=== PATIENT | female | born 1935 | race Caucasian/White ===

== ENCOUNTER 2019-07-02 11:32 | Emergency (ER) | payer MEDICARE, OTHER ==
[~2019-07-02] VITALS: Ht 154.9 cm; Wt 61.2 kg
[~2019-07-02 11:32] MED LIST: ASPI81CH43 PO; ATEN25TA PO; ATOR20TA50 PO; FAM20T PO
[2019-07-02] MEDS ORDERED: TETANUS-DIPTH-ACEL PERTUSSIS 0.5ML SYR Tdap IM ONE (12:15)
[2019-07-02] MEDS ORDERED: ACETAMINOPHEN 325 MG TAB PO ONE (12:15)
[2019-07-02 14:26] VITALS: BP 169/75
[2019-07-02] MEDS ORDERED: KETOROLAC TROMETH 60MG/2ML VIAL IM ONE (14:30)
[2019-07-02] MEDS ORDERED: cefTRIAXone SOD 1,000 MG VL IM ONE (14:30)
== END 2019-07-02 15:26 | disposition home or self-care (01) ==
LOC: ER 11:32 → EDBD 11:32 → ER 15:26
DX: S51.012A Laceration without foreign body of left elbow, initial encounter (principal); S61.511A Laceration without foreign body of right wrist, initial encounter; M25.552 Pain in left hip; M25.512 Pain in left shoulder; I10 Essential (primary) hypertension; E78.5 Hyperlipidemia, unspecified; Z88.5 Allergy status to narcotic agent; W19.XXXA Unspecified fall, initial encounter; Y93.89 Activity, other specified; Y92.009 Unspecified place in unspecified non-institutional (private) residence as the place of occurrence of the external cause; Y99.8 Other external cause status; I67.2 Cerebral atherosclerosis
CPT/HCPCS: 70450; 71045; 72192; 73030; 73080; 73110; 90471; 90715; 93005; 96372; 99285; J0696; J1885

== ENCOUNTER 2024-07-12 22:08 | Inpatient (IN) | payer MEDICARE, OTHER ==
[~2024-07-12] VITALS: Ht 152.4 cm; Wt 70.6 kg
[~2024-07-12 22:08] MED LIST changes: -FAM20T PO; +FAMO20TA10 PO
--- NOTE | 2024-07-12 22:48 | ED.PDOC ---
History of Present Illness HPI Comments 89 y/o F is BIBA for c/o flu-like symptoms, today. Per EMS report, patient endorses on multiple complaints, that began with congestion, fatigue, and diarrhea, yesterday. Today, patient endorses on calling EMS for nausea, vomiting , diarrhea, and generalized bodyaches. Reports no recent abnormal events and ea ting at a restaurant, earlier, with her usual food order. Denies any further associated symptoms. Chief Complaint: Nausea/Vomiting Time Seen by MD: 22:30 Reviewed Notes: Nurses Notes, Closing Manager Notes, Medications, Allergies Allergies: Coded Allergies: Codeine (Verified Allergy, Unknown, 07/12/24) Information Source: Patient, Emergency Med Personnel Mode of Arrival: EMS Severity: Moderate Timing: Hours Duration: Since onset Prehospital treatment: None Past Medical History PAST MEDICAL HISTORY: Denies Surgical History: Denies all surgeries SWIMMING POOL ATTENDANT History: No Pertinent SWIMMING POOL ATTENDANT History All Other Systems: Reviewed and Negative (Comprehensive systems review obtained and negative except for what is stated in the HPI.) Physical Exam General Appearance: No Apparent Distress, Normal HEENT: Normal ENT Inspection, Pharynx Normal, TMs Normal Neck: Full Range of Motion, Non-Tender, Normal, Normal Inspection Respiratory: Chest Non-Tender, Lungs Clear, No Accessory Muscle Use, No Respira tory Distress, Normal Breath Sounds Cardiovascular: No Edema, No JVD, No Murmur, No Gallop, Normal Peripheral Pulses, Regular Rate/Rhythm Breast Exam: Deferred Gastrointestinal: Diffuse (tenderness), No Organomegaly, No Pulsatile Mass, Normal Bowel Sounds, Soft, Tenderness Genitalia: Deferred Pelvic: Deferred Rectal: Deferred Extremities: No calf tenderness, Normal capillary refill, Normal inspection, Normal range of motion, Non-tender, No pedal edema Musculoskeletal : Apperance: Normal Neurologic: Alert, wire coiler II-XII nml as Tested, No Motor Deficits, Normal Affect, Normal Mood, No Sensory Deficits Cerebellar Function: Normal Reflexes: Normal Skin: Dry, Normal Color, Warm Lymphatic: No Adenopathy Was a procedure done? Was a procedure done?: No Differential Dx Considerations may include: viral syndrome, URI, UTI, gastritis, gastroenteritis, spoiled food, among others X-Ray, Labs, Meds, VS Vital Signs Date Time Temp Pulse Resp B/P (MAP) Pulse Ox O2 Delivery O2 Flow Rate FiO2 07/12/24 22:11 98.4 68 18 185/77 (113) 99 98.4 Lab Test 07/12/24 22:39 Range/Units White Blood Count 7.2 4.4-10.8 10^3/uL Red Blood Count 4.62 4.0-5.20 10^6/uL Hemoglobin 13.4 12.2-16.2 g/dL Hematocrit 41.0 36.0-46.0 % Mean Corpuscular Volume 88.8 80.0-100.0 fL Mean Corpuscular Hemoglobin 29.0 28.0-32.0 pg Mean Corpuscular Hemoglobin Concent 32.7 32.0-36.0 g/dL Red Cell Distribution Width 14.2 11.8-14.3 % Platelet Count 176 140-450 10^3/uL Mean Platelet Volume 8.8 6.9-10.8 fL Neutrophils (%) (Auto) 73.2 37.0-80.0 % Lymphocytes (%) (Auto) 18.6 10.0-50.0 % Monocytes (%) (Auto) 5.3 0.0-12.0 % Eosinophils (%) (Auto) 2.1 0.0-7.0 % Basophils (%) (Auto) 0.8 0.0-2.0 % Neutrophils # (Auto) 5.3 1.6-8.6 10 ^3/uL Lymphocytes # (Auto) 1.3 0.4-5.4 10 ^3/uL Monocytes # (Auto) 0.4 0-1.3 10 ^3/uL Eosinophils # (Auto) 0.2 0-0.8 10 ^3/uL Basophils # (Auto) 0.1 0-0.2 10 ^3/uL Nucleated Red Blood Cells 0.0 % Sodium Level 144 136-145 mmol/L Potassium Level 4.3 3.5-5.1 mmol/L Chloride Level 105 98-107 mmol/L Carbon Dioxide Level 31 20-31 mmol/L Anion Gap 8 5-15 Blood Urea Nitrogen 19 9-23 mg/dL Creatinine 0.87 0.550-1.02 mg/dL Glomerular Filtration Rate Calc 64 >90 mL/min BUN/Creatinine Ratio 21.8 H 10.0-20.0 Serum Glucose 228 H 74-106 mg/dL Calcium Level 9.6 8.7-10.4 mg/dL Total Bilirubin 0.4 0.2-1.0 mg/dL Aspartate Amino Transferase (AST) 102 H 13-40 U/L Alanine Aminotransferase (ALT) 44 H 7-40 U/L Alkaline Phosphatase 107 46-116 U/L Total Protein 6.7 5.7-8.2 g/dL Albumin 4.1 3.2-4.8 g/dL Lipase 50 12-53 U/L X-Ray, Labs, Meds, VS Comment Imaging: X-rays and CT scans were reviewed and interpreted by this provider, CT abdomen pelvis: IMPRESSION: 1. No acute abdominal or pelvic findings. 2. Nonobstructive left nephrolithiasis. 3. Diverticulosis coli. Laboratory: Labs reviewed and interpreted by this provider. No significant abnormalities noted. Patient has prior medical visits reviewed. Med reconciliation performed Vital signs reviewed Patient will be admitted for acute abdominal pain, acute vomiting, diverticulosis. Patient was given IV fluids, pain will be managed, recommend GI consult in the morning. Time of 1ST Reevaluation: 23:00 Reevaluation 1ST: Unchanged Patient Education/Counseling: Diagnosis, Treatment Family Education/Counseling: No Family Present Departure 1 Departure Time of Disposition: 02:17 Impression: Primary Impression: Diverticulosis Additional Impressions: Acute abdominal pain Acute vomiting Disposition: 09 ADMITTED INPATIENT Condition: Fair Critical Care Note Critical Care Time?: No Stability Stability form required: No Heart Score Heart Score: Heart Score Response (Comments) Value History N/A 0 EKG N/A 0 Age N/A 0 Risk Factors N/A 0 Troponin N/A 0 Total 0 I personally scribed for BC THAPA ([email or web address]) on 07/12/24 at 22:48. Electronically submitted by Yordan Huber ([email or web address]). BC THAPA July 12, 2024 22:48
[2024-07-12 23:22] LABS: Basophils # (auto) 0.1 10 ^3/uL (0-0.2); Basophils % (auto) 0.8 % (0.0-2.0); Eosinophils # (auto) 0.2 10 ^3/uL (0-0.8); Eosinophils % (auto) 2.1 % (0.0-7.0); Hemoglobin 13.4 g/dL (12.2-16.2); Lymphocytes # (auto) 1.3 10 ^3/uL (0.4-5.4); Lymphocytes % (auto) 18.6 % (10.0-50.0); Mean Corpuscular Hgb Conc. 32.7 g/dL (32.0-36.0); Mean Corpuscular Volume 88.8 fL (80.0-100.0); Monocytes # (auto) 0.4 10 ^3/uL (0-1.3); Monocytes % (auto) 5.3 % (0.0-12.0); Neutrophils # (auto) 5.3 10 ^3/uL (1.6-8.6); Neutrophils % (auto) 73.2 % (37.0-80.0); Platelet Count (auto) 176 10^3/uL (140-450); Red Blood Cells 4.62 10^6/uL (4.0-5.20); Red Cell Distribution Width 14.2 % (11.8-14.3); White Blood Cell 7.2 10^3/uL (4.4-10.8)
[2024-07-12 23:32] LABS: Albumin 4.1 g/dL (3.2-4.8); Alkaline Phosphatase 107 U/L (46-116); Anion Gap 8 (5-15); BUN/Creatinine Ratio 21.8 (10.0-20.0); Bilirubin, Total 0.4 mg/dL (0.2-1.0); Blood Urea Nitrogen 19 mg/dL (9-23); Calcium 9.6 mg/dL (8.7-10.4); Carbon Dioxide 31 mmol/L (20-31); Chloride 105 mmol/L (98-107); Lipase 50 U/L (12-53); Potassium 4.3 mmol/L (3.5-5.1); Sodium 144 mmol/L (136-145); Total Protein 6.7 g/dL (5.7-8.2)
[2024-07-12 23:33] LABS: Alanine Aminotransferase 44 U/L (7-40); Aspartate Aminotransferase 102 U/L (13-40); Glucose 228 mg/dL (74-106)
--- NOTE | 2024-07-13 01:59 | DVH ---
Exam: CT CT AB PEL WO CON-NO ORAL OR IV History: abd pain Comparison Study: None Technique: Multidetector spiral CT of the abdomen was performed from lung bases to pubic symphysis. I maging was performed without IV contrast. Axial, coronal and sagittal multiplanar reformats were obta ined from the axial data set by the technologist. Radiation Dose : 1. Abdomen/Pelvis: CTDIvol 10.63 mGy, DLP 523.67 mGy*cm. Findings: Evaluation of solid organs is limited due to lack of intravenous contrast use. Lung Bases: No acute or significant lung base finding. Normal heart size. No pleural or pericardial effusion. Liver: The liver is normal in size. No focal lesions. Gallbladder and Biliary Tree: Status post cholecystectomy. Spleen: Unremarkable Pancreas: Moderate diffuse fatty parenchymal replacement. The pancreas is otherwise grossly normal in appearance. Adrenal Glands: Unremarkable Kidneys: Kidneys are grossly normal without hydronephrosis. Nonobstructing left inferior pole 0.4 cm nephrolith. Bladder: Grossly unremarkable for degree of distention. Bowel: The stomach is grossly normal in appearance. Small bowel and colon are normal in caliber and d istribution. Sigmoid colonic diverticula without CT evidence of acute diverticulitis. The appendix is not visualized; however, no secondary findings of acute appendicitis identified. Ascites: Absent Lymphadenopathy: No mesenteric, retroperitoneal or periportal lymphadenopathy. Abdominal Wall and Mesentery: Unremarkable. Vasculature: The visualized abdominal aorta is normal in size and caliber. Atherosclerotic vascular c alcifications. Evaluation of abdominal and pelvic vessels is limited due to lack of intravenous cont rast. Pelvic Organs: Unremarkable status post hysterectomy. Musculoskeletal: No aggressive focal bony lesions, acute fractures or dislocation. IMPRESSION: 1. No acute abdominal or pelvic findings. 2. Nonobstructive left nephrolithiasis. 3. Diverticulosis coli. Radiation optimization: All CT scans at this facility use at least one of these dose optimization cesar hniques: automated exposure control mA and/or kV adjustment per patient size (includes targeted exam s where dose is matched to clinical indication) or iterative reconstruction.
--- NOTE | 2024-07-13 03:12 | DVHHP2 ---
History of Present Illness History of Present Illness Patient is 89 years old female with a past medical history of hypertension came to the hospital due to intractable nausea and vomiting. As per patient she has been having nausea and vomiting for last 2 days, couple of times a day, watery, no blood. Patient also endorsed diarrhea for last 3 days, 2 to 3 times a day, no blood. Also endorsed left lower back pain for last couple of days, crampy, intermittent in nature. On further inquiry patient reported she has been tired and fatigued. Patient denied fever, dysuria, acute joint pain or swelling, dysarthria or change in vision. chest pain or shortness of breath. Lab workup revealed 4 AST 102, ALT 45. CT abdomen reveale-. Nonobstructive left nephrolithiasis.Diverticulosis coli. Past Medical History HTN Past Surgical History Appendectomy, cholecystectomy, hysterectomy Past Social History Lives alone, occasional alcoholic, denies smoking or drug abuse Home medication -atenolol Review of Systems Review of Systems Allergy- codeine Patient was seen today at the bedside. Cardiovascular- deny acute chest pain or shortness of breath or cough or palpitation Respiratory denies cough or short of breath or wheezing Musculoskeletal-denies acute joint swelling or tenderness or redness Neurological- denies acute dysarthria, dysphagia, change in vision Psychiatry- denies depression or SI or HI Skin- denies acute rash or purpura Allergies: Coded Allergies: Codeine (Verified Allergy, Unknown, RASH, 02/16/19) Medications Current Medications Medications Dose Ordered Sig/Ky Route Start Time Stop Time Status Last Admin Dose Admin Acetaminophen 650 mg Q6HP PRN PO 07/13/24 03:15 UNV Nitroglycerin 0.4 mg Q5MINP PRN SL 07/13/24 03:15 UNV Morphine Sulfate 2 mg Q30M PRN IV 07/13/24 03:15 UNV Exam Vital Signs Vital Signs Date Time Temp Pulse Resp B/P (MAP) Pulse Ox O2 Delivery O2 Flow Rate FiO2 07/12/24 22:11 98.4 68 18 185/77 (113) 99 98.4 Exam General examination- awake, alert, oriented HEENT- PEERLA, no acute nasal discharge Cardiovascular- S1-S2 audible, rate and rhythm regular, no murmur Respiratory- CTAB, no wheeze or rhonchi Gastrointestinal-abdominal tenderness++, bowel sound+. Nondistended Musculoskeletal-no acute joint swelling or tenderness or redness Lower extremity- no leg edema Renal system-tenderness in the left lower back+ Neurological- cranial nerves intact, no acute dysarthria or dysphagia Psychiatry- denies depression or SI or HI Skin- no acute rash or purpura Labs/Xrays Labs Test 07/12/24 22:39 Range/Units White Blood Count 7.2 4.4-10.8 10^3/uL Red Blood Count 4.62 4.0-5.20 10^6/uL Hemoglobin 13.4 12.2-16.2 g/dL Hematocrit 41.0 36.0-46.0 % Mean Corpuscular Volume 88.8 80.0-100.0 fL Mean Corpuscular Hemoglobin 29.0 28.0-32.0 pg Mean Corpuscular Hemoglobin Concent 32.7 32.0-36.0 g/dL Red Cell Distribution Width 14.2 11.8-14.3 % Platelet Count 176 140-450 10^3/uL Mean Platelet Volume 8.8 6.9-10.8 fL Neutrophils (%) (Auto) 73.2 37.0-80.0 % Lymphocytes (%) (Auto) 18.6 10.0-50.0 % Monocytes (%) (Auto) 5.3 0.0-12.0 % Eosinophils (%) (Auto) 2.1 0.0-7.0 % Basophils (%) (Auto) 0.8 0.0-2.0 % Neutrophils # (Auto) 5.3 1.6-8.6 10 ^3/uL Lymphocytes # (Auto) 1.3 0.4-5.4 10 ^3/uL Monocytes # (Auto) 0.4 0-1.3 10 ^3/uL Eosinophils # (Auto) 0.2 0-0.8 10 ^3/uL Basophils # (Auto) 0.1 0-0.2 10 ^3/uL Nucleated Red Blood Cells 0.0 % Sodium Level 144 136-145 mmol/L Potassium Level 4.3 3.5-5.1 mmol/L Chloride Level 105 98-107 mmol/L Carbon Dioxide Level 31 20-31 mmol/L Anion Gap 8 5-15 Blood Urea Nitrogen 19 9-23 mg/dL Creatinine 0.87 0.550-1.02 mg/dL Glomerular Filtration Rate Calc 64 >90 mL/min BUN/Creatinine Ratio 21.8 H 10.0-20.0 Serum Glucose 228 H 74-106 mg/dL Calcium Level 9.6 8.7-10.4 mg/dL Total Bilirubin 0.4 0.2-1.0 mg/dL Aspartate Amino Transferase (AST) 102 H 13-40 U/L Alanine Aminotransferase (ALT) 44 H 7-40 U/L Alkaline Phosphatase 107 46-116 U/L Total Protein 6.7 5.7-8.2 g/dL Albumin 4.1 3.2-4.8 g/dL Lipase 50 12-53 U/L Assessment/Plan Assessment/Plan Assessment and plan Intractable nausea and vomiting and diarrhea likely due to acute gastroenteritis Acute gastroenteritis likely infectious Hypertensive urgency Left renal not obstructing Renal Diverticulosis coli Transaminitis Plan Continue IV fluid as prescribed Ordered ceftriaxone and metronidazole Lovenox DVT prophylaxis Pantoprazole as prescribed Pain medication as prescribed Hydralazine PRN Pending C diff toxin, stool culture Pending echo 2D report Goals of care, Code status ; discussed with >15 minutes PUD prophylaxis: Pantoprazole DVT prophylaxis: Lovenox Plan discussed with Dr. Brenner , nursing staff, Total time spent on patient evaluation, chart review, assessment and plan, discussion discussion >35 minutes Plan discussed with: Patient (RN), Other My Orders Orders - MEHUL AKERS RESIDENT Procedure Category Date Status Time Admit ADMIT 07/13/24 Transmitted 03:06 Code Status CODE 07/13/24 Transmitted 03:06 Complete Blood Count LAB 07/14/24 Verified 04:00 Comprehensive LAB 07/14/24 Verified Metabolic Panel 04:00 Echo 2d Mode Cardiac US 07/13/24 Logged DOP 03:06 Acetaminophen Tablet PHA 07/13/24 Logged (Tylenol Tablet) 03:15 Clear Liq Diet DIET 07/13/24 Transmitted Breakfast Nitroglycerin PHA 07/13/24 Logged Sublingual (Ntrostat 03:15 Morphine Sulfate PHA 07/13/24 Logged Injection 03:15 Oxygen By Nasal RT 07/13/24 Transmitted Cannula 03:06 Stat Ekg For Chest MANOJ 07/13/24 In Process Pain 03:06 Notify Of Changes MANOJ 07/13/24 In Process From Base 03:06 Privacy Director For MANOJ 07/13/24 In Process 24 Hours 03:06 Emergency Dysrhythmia MANOJ 07/13/24 In Process Protocol 03:06 Rhythm Strips Once [facility] 07/13/24 In Process Every Shift 03:06 Date of Service: July 13, 2024 Billing Provider: ANABEL BRENNER MD Common Visit Codes: 80554-[id number] INP/OBS CARE (HIGH) Secondary Visit Codes: 04053-[id number] CARE PLAN 30 MINUTES MEHUL AKERS RESIDENT July 13, 2024 03:12
[2024-07-13] MEDS ORDERED: ACETAMINOPHEN 325 MG TAB PO PRN (03:15)
[2024-07-13] MEDS ORDERED: NITROGLYCERIN 0.4 MG SL TAB SL PRN (03:15)
[2024-07-13] MEDS ORDERED: SODIUM CHLORIDE 0.9% 1,000 ML IV ONE (03:30)
[2024-07-13 04:00] VITALS: PULSE 83; RESP 17; O2SAT 96
[2024-07-13] MEDS: SODIUM CHLORIDE 0.9% 1,000 ML IV ONE (04:54)
[2024-07-13] MEDS: ONDANSETRON HCL 4 MG/2 ML VIAL IV ONE (04:57)
[2024-07-13] MEDS: hydrALAZINE HCL 20 MG/ML VL IV ONE (04:58)
[2024-07-13] MEDS: cefTRIAXone 1GM/50ML D5W 50 ML IV ONE (05:15)
[2024-07-13] MEDS: PANTOPRAZOLE 40 MG/10 ML VIAL INJ IV ONE (05:33)
[2024-07-13] MEDS: ENOXAPARIN SOD 40 MG/0.4 ML SYRINGE SC ONE (05:34)
[2024-07-13] MEDS: metroNIDAZOLE 500MG/100ML 100 ML IV ONE (05:43)
[2024-07-13] MEDS: SODIUM CHLORIDE 0.9% 1,000 ML IV SCH (07:07)
[2024-07-13 07:50] VITALS: PULSE 69; RESP 16; O2SAT 96
[2024-07-13 12:54] LABS: Urine Bacteria FEW /hpf (None Seen); Urine Blood Negative /uL (Negative); Urine Clarity Clear (Clear); Urine Color Yellow (Yellow); Urine Protein, UAD Negative (Negative); Urine Specific Gravity 1.021 (1.001-1.035); Urine Squamous Epithelial Cell FEW /hpf (<5); Urine Urobilinogen Normal (Negative); Urine WBC 9 /HPF (0-5)
[2024-07-13] MEDS: metroNIDAZOLE 500MG/100ML 100 ML IV SCH (13:36)
--- NOTE | 2024-07-13 18:45 | DVHPNRES ---
Progress Note Date Seen: July 13, 2024 Resident Creating Document: YARITZA ZHENG RESIDENT Has the PT tested + for MRSA If YES, has PT been informed?: No Medical Necessity Reason Pt with a Central, PICC or Fol: No Medical Necessity Reason History of Present Illness Patient is 89 years old female with a past medical history of hypertension came to the hospital due to intractable nausea and vomiting. As per patient she has been having nausea and vomiting for last 2 days, couple of times a day, watery, no blood. Patient also endorsed diarrhea for last 3 days, 2 to 3 times a day, no blood. Also endorsed left lower back pain for last couple of days, crampy, intermittent in nature. On further inquiry patient reported she has been tired and fatigued. Patient denied fever, dysuria, acute joint pain or swelling, dysarthria or change in vision. chest pain or shortness of breath. Lab workup revealed 4 AST 102, ALT 45. CT abdomen reveale-. Nonobstructive left nephrolithiasis.Diverticulosis coli. Past Medical History: HTN Past Surgical History: Appendectomy, cholecystectomy, hysterectomy Past Social History: Lives alone, occasional alcoholic, denies smoking or drug abuse Home medication -atenolol PN: 07/13/2024 Patient is an 89 years old female with a past medical history of hypertension came to the hospital due to intractable nausea and vomiting and back pain. According to the patient, for the past 2-3 days, she has bee having. At least 2-3 times day. it was nonbilious and nonbloody. Then she she starting feeling dizzy. that prompted her to come to the ED. Also, patient mention having new onset lower back pain. She denies any numbness or tingling sensation in her lower extremities. She had no fever no dysuria quit acute joint pains. In the ED, her initial blood pressure was 187/77, heart rate 68, RR: 12-19. Work revealed mildly elevated liver enzymes AST about 2/3 grand on ALT. Patient said she does not drink or smoke. CT abdomen revealed1. No acute abdominal or pelvic findings Nonobstructive left nephrolithiasis and Diverticulosis coli. Subjective Review of Systems Constitutional: Denies fever no chills no feeling of malaise; no diarrhea about or nausea vomiting today HEENT: Denies headache, ear pain, ear discharges, conjunctivitis, nasal discharge throat pain Cardiovascular: Denies chest pain, palpitation, orthopnea, PND, or pedal edema Respiratory: Denies shortness of breath, cough cough, sputum production, hemoptysis, GI: Denies abdominal pain, nausea, vomiting, diarrhea, hematemesis, hematochezia, : Denies frequency, urgency, hematuria, Endocrine: Denies unintentional weight gain or weight loss, feeling of hot flashes, Dung: Denies easy bruising, bleeding disorders, epistaxis Musculoskeletal: Denies joint pains, muscle aches Psych: No evidence of depression, saturnino, suicidal ideation Objective vital signs Vital Sign Date Time Temp Pulse Resp B/P (MAP) Pulse Ox O2 Delivery O2 Flow Rate FiO2 07/13/24 16:00 98.1 69 16 157/65 (95) 94 98.1 07/13/24 07:50 Room Air* 0 21 Total Intake and Output 07/12/24 07/12/24 07/13/24 15:00 23:00 07:00 Intake Total 1150 ml Balance 1150 ml medications Current Medications Medications Dose Ordered Sig/Ky Route Start Time Stop Time Status Last Admin Dose Admin Acetaminophen 650 mg Q6HP PRN PO 07/13/24 03:15 Nitroglycerin 0.4 mg Q5MINP PRN SL 07/13/24 03:15 Morphine Sulfate 2 mg Q30M PRN IV 07/13/24 03:15 Pantoprazole Sodium 40 mg DAILY IV 07/14/24 10:00 Enoxaparin Sodium 40 mg DAILY SC 07/14/24 10:00 Ceftriaxone Sodium 50 ml @ 100 mls/hr DAILY@09 IV 07/14/24 09:00 Metronidazole 100 ml @ 100 mls/hr Q8HR IV 07/13/24 14:00 07/13/24 13:36 100 MLS/HR Hydralazine HCl 10 mg Q6HP PRN IV 07/13/24 03:30 Sodium Chloride 1,000 ml @ 75 mls/hr [id number] IV 07/13/24 03:30 07/13/24 07:07 75 MLS/HR Examination General Appearance: Alert, Oriented X3, Cooperative, No acute distress HEENT: Atraumatic, PERRLA, EOMI, Mucous membrane moist/pink Respiratory: Clear to auscultation, Normal air movement Cardiovascular: Regular rate, Normal S1, Normal S2, No murmurs, no chest wall tenderness Abdominal: NO distention, no tenderness, bowel sounds present, no scars noted Extremities: No clubbing, No cyanosis, No edema, Normal pulses, No tenderness/swelling Skin: No rashes, No breakdown, No significant lesion Neuro: Normal gait, Normal speech, Strength at 5/5 X4 ext, Normal tone, Sensation intact, Cranial nerves 3-12 NL, Reflexes 2+ Psych/Mental Status: Mental status NL, Mood NL laboratory and microbiology Laboratory Tests 07/12/24 22:39 Test 07/12/24 22:39 Range/Units Serum Glucose 228 H 74-106 mg/dL Problem List/Assessment/Plan Problem List/Assessment/Plan Assessment and plan Acute Gastroenteritis likely infectious --> Zofran --> ceftriaxone and metronidazole Hypertensive urgency --> atenolol --> Echo report pending Acute Lower back pain --> Tylenol Asymptomatic pyuria --> Ceftriaxone Left renal not obstructing Renal --> Hydration Diverticulosis coli --> Monitor for inflammation Acute Transaminitis --> Check blood etoh Goal of care discussed for more than 20 minute: Full code Case and plan discussed with Dr. Pride Plan discussed with: Patient My Orders My Orders Orders - YARITZA ZHENG Procedure Category Date Status Time Covid19 Antigen [facility] LAB 07/13/24 Transmitted Ondansetron Hcl PHA 07/13/24 Transmitted (Zofran) 18:15 Basic Metabolic Panel LAB 07/14/24 Verified 04:00 Date of Service: July 13, 2024 Billing Provider: SREEDHAR JONES MD Common Visit Codes: [id number] INP/OBS CARE(HIGH) YARITZA ZHENG July 13, 2024 18:45 SREEDHAR JONES MD July 17, 2024 03:11
[2024-07-13 19:20] VITALS: RESP 17; O2SAT 99
[2024-07-13] MEDS: MORPHINE SULFATE INJ 2 MG/ml SYRG IV PRN (20:06)
[2024-07-13] MEDS: hydrALAZINE HCL 20 MG/ML VL IV PRN (20:08)
[2024-07-13 20:12] LABS: COVID19 ANTIGEN SOFIA FIA NEGATIVE (NEGATIVE)
[2024-07-13 20:50] VITALS: BP 108/63; PULSE 79; RESP 16; TEMP 97.4; O2SAT 100
[2024-07-13] MEDS: ONDANSETRON HCL 4 MG/2 ML VIAL IV PRN (20:55)
[2024-07-13 23:26] VITALS: BP 108/63; PULSE 79; RESP 16; TEMP 97.4; O2SAT 100
[2024-07-14] VITALS (7 sets, daily range): BP systolic 113–163; BP diastolic 55–74; PULSE 56–110; RESP 16–18; TEMP 97.4–98.2; O2SAT 96–100
[2024-07-14 06:44] LABS: Basophils # (auto) 0.1 10 ^3/uL (0-0.2); Basophils % (auto) 0.8 % (0.0-2.0); Eosinophils # (auto) 0.1 10 ^3/uL (0-0.8); Eosinophils % (auto) 1.3 % (0.0-7.0); Hematocrit 38.9 % (36.0-46.0); Hemoglobin 12.8 g/dL (12.2-16.2); Lymphocytes # (auto) 1.4 10 ^3/uL (0.4-5.4); Lymphocytes % (auto) 19.9 % (10.0-50.0); Mean Corpuscular Hemoglobin 29.4 pg (28.0-32.0); Mean Corpuscular Hgb Conc. 32.8 g/dL (32.0-36.0); Mean Corpuscular Volume 89.6 fL (80.0-100.0); Monocytes # (auto) 0.4 10 ^3/uL (0-1.3); Monocytes % (auto) 5.8 % (0.0-12.0); Neutrophils # (auto) 5.2 10 ^3/uL (1.6-8.6); Neutrophils % (auto) 72.2 % (37.0-80.0); Nucleated Red Blood Cells % 0.2 %; Platelet Count (auto) 150 10^3/uL (140-450); Red Blood Cells 4.34 10^6/uL (4.0-5.20); Red Cell Distribution Width 14.7 % (11.8-14.3); White Blood Cell 7.3 10^3/uL (4.4-10.8)
[2024-07-14 07:12] LABS: Albumin 3.6 g/dL (3.2-4.8); Alkaline Phosphatase 96 U/L (46-116); Anion Gap 10 (5-15); Aspartate Aminotransferase 38 U/L (13-40); BUN/Creatinine Ratio 19.7 (10.0-20.0); Blood Urea Nitrogen 13 mg/dL (9-23); Carbon Dioxide 27 mmol/L (20-31); Glucose 106 mg/dL (74-106); Potassium 4.5 mmol/L (3.5-5.1); Sodium 145 mmol/L (136-145); Total Protein 5.9 g/dL (5.7-8.2)
[2024-07-14 07:13] LABS: Bilirubin, Total 0.5 mg/dL (0.2-1.0)
[2024-07-14 07:16] LABS: Alanine Aminotransferase 46 U/L (7-40); Chloride 108 mmol/L (98-107)
[2024-07-14] MEDS: PANTOPRAZOLE 40 MG/10 ML VIAL INJ IV SCH (09:50)
[2024-07-14] MEDS: ENOXAPARIN SOD 40 MG/0.4 ML SYRINGE SC SCH (09:50)
[2024-07-14] MEDS: cefTRIAXone 1GM/50ML D5W 50 ML IV SCH (09:50)
[2024-07-14 11:33] LABS: INR 1.02 (0.9-1.15); Partial Thromboplastin Time 24.8 SEC (24.5-34.5); Prothrombin Time 10.8 sec (9.3-11.8)
--- NOTE | 2024-07-14 12:18 | DVH ---
CHEST RADIOGRAPH Indication: shortness of breath Technique: Single frontal view of the chest was obtained Comparison: None FINDINGS: Lines and Tubes: None Lungs: No focal consolidation. Pleura: No effusion. No pneumothorax. Cardiomediastinal contours: Unremarkable Bones: No acute osseous abnormality. IMPRESSION: 1. No acute cardiopulmonary disease.
[2024-07-14 12:19] LABS: Rapid Influenza A Negative (Negative); Rapid Influenza B Negative (Negative)
[2024-07-14 13:53] LABS: Magnesium 1.7 mg/dL (1.6-2.6)
[2024-07-14 13:54] LABS: Phosphorus 4.5 mg/dL (2.4-5.1)
--- NOTE | 2024-07-14 14:11 | DVHSR ---
APPROVED REPORT EXAM: Two-dimensional and M-mode echocardiogram with Doppler and color Doppler. Blood Pressure: 124/55 mmHg INDICATION Hypertension RISK FACTORS Height: 60, Weight: 130 DIMENSIONS LVDd3.8 (3.8-5.7cm)LA (2D)3.6 (1.9-4.0cm)Aortic Root3.1 (2.0-3.7cm) LVDs2.6 (2.5-4.0cm)LA (MM) (1.9-4.0cm)Aortic Cusp Exc1.1 (1.5-2.0cm) EF (%) 61.0 (55-70%)Rt. Atrium4.1 (1.9-4.0cm)Asc. Aorta cm IVSd1.3 (0.7-1.1cm)RV (D) (1.8-2.4cm) PWd1.2 (0.7-1.1cm) Mitral Valve MitralMitral Stenosis E wave1.19m/sMV Mean GR.mmHg A wave0.62m/sMV Peak GR.88mmHg E/A ratio1.92D MVAcm2 DECEL [id number] 1/2 [id number] IVRTmsDop MVA4.89cm2 Aortic Valve Aortic ValveAortic Stenosis V10.76m/Sheyla Mean GR.4mmHg V21.33m/Sheyla Peak GR.7mmHg LVOT Diameter1.9 (1.8-2.4cm)Doppler AVA1.62cm2 AI P 1/2 Eouq912.44ms Tricuspid Valve TR Velocity4.16m/s [id number] Conclusion Technically good study. Difficult acoustic windows. Sinus rhythm. RV enlargement. Left atrial enlargement. Mild mitral annular calcification. Valves appear to be structurally normal. Mild MR. Moderate TR. Pulmonary hypertension. RVSP of 80 mmHg. No pericardial effusion masses or vegetations. Small pericardial fat pad noted.
[2024-07-14] MEDS: IOHEXOL 350 MG/ML 100ML IJ ONE (17:39)
[2024-07-14] MEDS: FUROSEMIDE 40 MG/4 ML VIAL IV SCH (17:49)
--- NOTE | 2024-07-14 18:21 | DVH ---
Indication: R/O PE Technique: CT axial images of the chest are obtained with intravenous contrast per CT angiogram prot ocol. Coronal and sagittal reformats were obtained. Radiation Dose Information: CTDI volume is 8.88 mGy. Dose-length product is 469.49 mGy*cm Comparison: None FINDINGS: No filling defect within the main left and right pulmonary arteries. Segmental and subsegmental branc hes are suboptimally opacified/characterize. Trachea patent. No pneumothorax. Bilateral atelectasis. Left lower lobe nodule measuring 8 mm. 7 mm r ight lower lobe nodule. Small bilateral pleural effusions. Heart normal in size. Coronary artery calcification disease. Left paratracheal lymph node measuring 1 2 mm. Pretracheal lymph node measuring 9 mm. No supraclavicular or axillary lymphadenopathy. Cholecystectomy. Dilated CBD and intrahepatic ducts up to 11 mm. Moderate thoracic degenerative disc disease. IMPRESSION: 1. No evidence for large pulmonary embolism. 2. Mediastinal lymphadenopathy. 3. Small bilateral pleural effusions. 4. Coronary artery calcification disease. 5. Pulmonary nodules up to 8 mm.1. Recommend follow-up per Fleischner society criteria
[2024-07-14] MEDS: PROCHLORPERAZINE EDISYLATE 5 MG/ML 2ML VIAL IV ONE (18:53)
--- NOTE | 2024-07-14 20:08 | DVHPNRES ---
Progress Note Date Seen: July 14, 2024 Resident Creating Document: YARITZA ZHENG RESIDENT Has the PT tested + for MRSA If YES, has PT been informed?: No Medical Necessity Reason Pt with a Central, PICC or Fol: No Medical Necessity Reason History of Present Illness Patient is 89 years old female with a past medical history of hypertension came to the hospital due to intractable nausea and vomiting. As per patient she has been having nausea and vomiting for last 2 days, couple of times a day, watery, no blood. Patient also endorsed diarrhea for last 3 days, 2 to 3 times a day, no blood. Also endorsed left lower back pain for last couple of days, crampy, intermittent in nature. On further inquiry patient reported she has been tired and fatigued. Patient denied fever, dysuria, acute joint pain or swelling, dysarthria or change in vision. chest pain or shortness of breath. Lab workup revealed 4 AST 102, ALT 45. CT abdomen reveale-. Nonobstructive left nephrolithiasis.Diverticulosis coli. Past Medical History: HTN Past Surgical History: Appendectomy, cholecystectomy, hysterectomy Past Social History: Lives alone, occasional alcoholic, denies smoking or drug abuse Home medication -atenolol PN: 07/13/2024 Patient is an 89 years old female with a past medical history of hypertension came to the hospital due to intractable nausea and vomiting and back pain. According to the patient, for the past 2-3 days, she has bee having. At least 2-3 times day. it was nonbilious and nonbloody. Then she she starting feeling dizzy. that prompted her to come to the ED. Also, patient mention having new onset lower back pain. She denies any numbness or tingling sensation in her lower extremities. She had no fever no dysuria quit acute joint pains. In the ED, her initial blood pressure was 187/77, heart rate 68, RR: 12-19. Work revealed mildly elevated liver enzymes AST about 2/3 grand on ALT. Patient said she does not drink or smoke. CT abdomen revealed1. No acute abdominal or pelvic findings Nonobstructive left nephrolithiasis and Diverticulosis coli. PN Patient is seen and examined this morning at the bedtime. He had difficulties breathing speaking in short sentences this is new compared to yesterday. BNP was elevated and has elevated D-dimer. CTa negative for PE, but pulmonary nodule measuring 8mm.. echo showed RV enlargement. Left atrial enlargement. Mild mitral annular calcification. Valves appear to be structurally normal. Mild MR. Moderate TR. Pulmonary hypertension. RVSP of 80 mmHg. Patient is started on Lasix 40 mg b.i.d. Subjective Review of Systems Constitutional: Denies fever no chills no feeling of malaise, HEENT: Denies headache, ear pain, ear discharges, conjunctivitis, nasal discharge throat pain Cardiovascular: Denies chest pain, palpitation, orthopnea, PND, or pedal edema Respiratory: shortness of breath, cough, NO sputum production, hemoptysis, GI: Denies abdominal pain, nausea, vomiting, diarrhea, hematemesis, hematochezia, : Denies frequency, urgency, hematuria, Endocrine: Denies unintentional weight gain or weight loss, feeling of hot flashes, Dung: Denies easy bruising, bleeding disorders, epistaxis Musculoskeletal: Denies joint pains, muscle aches Psych: No evidence of depression, saturnino, suicidal ideation Objective vital signs Vital Sign Date Time Temp Pulse Resp B/P (MAP) Pulse Ox O2 Delivery O2 Flow Rate FiO2 07/14/24 17:49 145/66 07/14/24 17:00 98.2 88 17 100 98.2 07/14/24 08:00 Room Air* 0 21 Total Intake and Output 07/13/24 07/13/24 07/14/24 15:00 23:00 07:00 Intake Total 100 ml 100 ml Balance 100 ml 100 ml medications Current Medications Medications Dose Ordered Sig/Ky Route Start Time Stop Time Status Last Admin Dose Admin Acetaminophen 650 mg Q6HP PRN PO 07/13/24 03:15 Nitroglycerin 0.4 mg Q5MINP PRN SL 07/13/24 03:15 Morphine Sulfate 2 mg Q30M PRN IV 07/13/24 03:15 07/13/24 20:06 2 MG Pantoprazole Sodium 40 mg DAILY IV 07/14/24 10:00 07/14/24 09:50 40 MG Enoxaparin Sodium 40 mg DAILY SC 07/14/24 10:00 07/14/24 09:50 40 MG Ceftriaxone Sodium 50 ml @ 100 mls/hr DAILY@09 IV 07/14/24 09:00 07/14/24 09:50 100 MLS/HR Metronidazole 100 ml @ 100 mls/hr Q8HR IV 07/13/24 14:00 07/14/24 15:18 100 MLS/HR Hydralazine HCl 10 mg Q6HP PRN IV 07/13/24 03:30 07/13/24 20:08 10 MG Ondansetron HCl 4 mg Q6HPRN PRN IV 07/13/24 18:15 07/13/24 20:55 4 MG Furosemide 40 mg BIDD IV 07/14/24 15:15 07/14/24 17:49 40 MG Aspirin 81 mg DAILY PO 07/15/24 10:00 Atenolol 25 mg BID PO 07/14/24 22:00 Atorvastatin Calcium 40 mg HS PO 07/14/24 22:00 Famotidine 40 mg DAILY PO 07/15/24 10:00 Examination General Appearance: Alert, Oriented X3, Cooperative, acute distress on 2L of oxygen HEENT: Atraumatic, PERRLA, EOMI, Mucous membrane moist/pink Respiratory: Clear to auscultation, Normal air movement Cardiovascular: Regular rate, Normal S1, Normal S2, No murmurs, no chest wall tenderness Abdominal: NO distention, no tenderness, bowel sounds present, no scars noted Extremities: No clubbing, No cyanosis, No edema, Normal pulses, No tenderness/swelling Skin: No rashes, No breakdown, No significant lesion Neuro: Normal gait, Normal speech, Strength at 5/5 X4 ext, Normal tone, Sensation intact, Cranial nerves 3-12 NL, Reflexes 2+ Psych/Mental Status: Mental status NL, Mood NL laboratory and microbiology Laboratory Tests 07/14/24 06:11 Test 07/14/24 06:11 Range/Units Serum Glucose 106 74-106 mg/dL Problem List/Assessment/Plan Problem List/Assessment/Plan Assessment and plan Acute Gastroenteritis likely infectious --> Zofran --> ceftriaxone and metronidazole Hypertensive urgency --> atenolol --> Echo report pending Acute Lower back pain --> Tylenol Asymptomatic pyuria --> Ceftriaxone Left renal not obstructing Renal --> Hydration Diverticulosis coli --> Monitor for inflammation Acute Transaminitis --> Check blood etoh 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 pulmonary nodule RV enlargement Goal of care discussed for more than 16 minute: Full code Case and plan discussed with Dr. Pirde Plan discussed with: Patient My Orders My Orders Orders - YARITZA ZHENG Procedure Category Date Status Time Chest Xray 1 View XY 07/14/24 Resulted 11:31 Bladder Scan ORDERS 07/14/24 Transmitted 11:31 Covid19 Antigen [facility] 07/14/24 Logged Aspirin Tablet PHA 07/15/24 In Process 10:00 Atenolol Tablet PHA 07/14/24 In Process (Tenormin Tablet) 22:00 Atorvastatin (Lipitor) PHA 07/14/24 In Process 22:00 Famotidine Tablet PHA 07/15/24 In Process (Pepcid Tablet) 10:00 Date of Service: July 14, 2024 Billing Provider: SREEDHAR JONES MD Common Visit Codes: [id number] INP/OBS CARE(HIGH) YARITZA ZHENG July 14, 2024 20:08 SREEDHAR JONES MD July 17, 2024 00:53
[2024-07-14] MEDS: ATENOLOL 25 MG TAB PO SCH (22:10)
[2024-07-14] MEDS: ATORVASTATIN 20 MG TAB PO SCH (22:11)
[2024-07-15] VITALS (7 sets, daily range): BP systolic 109–126; BP diastolic 42–50; PULSE 63–89; RESP 16–20; TEMP 97–98.4; O2SAT 97–100
[2024-07-15 07:05] LABS: Anion Gap 9 (5-15); Calcium 8.9 mg/dL (8.7-10.4); Carbon Dioxide 29 mmol/L (20-31); Chloride 103 mmol/L (98-107); Potassium 3.6 mmol/L (3.5-5.1); Sodium 141 mmol/L (136-145)
[2024-07-15 07:11] LABS: BUN/Creatinine Ratio 18.1 (10.0-20.0); Blood Urea Nitrogen 13 mg/dL (9-23); Glucose 102 mg/dL (74-106)
[2024-07-15] MEDS: FAMOTIDINE 20 MG TAB PO SCH (09:52)
[2024-07-15] MEDS: ASPirin 81 mg TAB PO SCH (09:53)
--- NOTE | 2024-07-15 17:13 | DVHPNRES ---
Progress Note Date Seen: July 15, 2024 Resident Creating Document: YARITZA ZHENG RESIDENT Has the PT tested + for MRSA If YES, has PT been informed?: No Medical Necessity Reason Pt with a Central, PICC or Fol: No Medical Necessity Reason History of Present Illness Patient is 89 years old female with a past medical history of hypertension came to the hospital due to intractable nausea and vomiting. As per patient she has been having nausea and vomiting for last 2 days, couple of times a day, watery, no blood. Patient also endorsed diarrhea for last 3 days, 2 to 3 times a day, no blood. Also endorsed left lower back pain for last couple of days, crampy, intermittent in nature. On further inquiry patient reported she has been tired and fatigued. Patient denied fever, dysuria, acute joint pain or swelling, dysarthria or change in vision. chest pain or shortness of breath. Lab workup revealed 4 AST 102, ALT 45. CT abdomen reveale-. Nonobstructive left nephrolithiasis.Diverticulosis coli. Past Medical History: HTN Past Surgical History: Appendectomy, cholecystectomy, hysterectomy Past Social History: Lives alone, occasional alcoholic, denies smoking or drug abuse Home medication -atenolol PN: 07/13/2024 Patient is an 89 years old female with a past medical history of hypertension came to the hospital due to intractable nausea and vomiting and back pain. According to the patient, for the past 2-3 days, she has bee having. At least 2-3 times day. it was nonbilious and nonbloody. Then she she starting feeling dizzy. that prompted her to come to the ED. Also, patient mention having new onset lower back pain. She denies any numbness or tingling sensation in her lower extremities. She had no fever no dysuria quit acute joint pains. In the ED, her initial blood pressure was 187/77, heart rate 68, RR: 12-19. Work revealed mildly elevated liver enzymes AST about 2/3 grand on ALT. Patient said she does not drink or smoke. CT abdomen revealed1. No acute abdominal or pelvic findings Nonobstructive left nephrolithiasis and Diverticulosis coli. PN 07/14/2024 Patient is seen and examined this morning at the bedtime. He had difficulties breathing speaking in short sentences this is new compared to yesterday. BNP was elevated and has elevated D-dimer. CTa negative for PE, but pulmonary nodule measuring 8mm.. echo showed RV enlargement. Left atrial enlargement. Mild mitral annular calcification. Valves appear to be structurally normal. Mild MR. Moderate TR. Pulmonary hypertension. RVSP of 80 mmHg. Patient is started on Lasix 40 mg b.i.d. PN 07/15/2024 Patient is seen and examined at the bedside. She is feeling a lot better compared to yesterday. her breathing is a little better than yesterday. However, she remains on 2 L of oxygen. At night patient made about almost 2 L of urine. She made 1950ml of urine recorded at of 6:50am. She has no complaint. We will continue to keep patient on same regimen with IV Lasix to clear her fluid overload. Plan is for her to follow with cardiology and pulmonology outpatient. CTA revealed Mediastinal lymphadenopathy, Small bilateral pleural effusions,Coronary artery calcification disease. Pulmonary nodules up to 8 mm. Subjective Review of Systems Constitutional: Denies fever no chills no feeling of malaise HEENT: Denies headache, ear pain, ear discharges, conjunctivitis, nasal discharge throat pain Cardiovascular: Denies chest pain, palpitation, orthopnea, PND, or pedal edema Respiratory: Denies shortness of breath, cough cough, sputum production, hemoptysis, GI: Denies abdominal pain, nausea, vomiting, diarrhea, hematemesis, hematochezia, : Denies frequency, urgency, hematuria, Endocrine: Denies unintentional weight gain or weight loss, feeling of hot flashes, Dung: Denies easy bruising, bleeding disorders, epistaxis Musculoskeletal: Denies joint pains, muscle aches Psych: No evidence of depression, saturnino, suicidal ideation Objective vital signs Vital Sign Date Time Temp Pulse Resp B/P (MAP) Pulse Ox O2 Delivery O2 Flow Rate FiO2 07/15/24 13:00 97.0 67 20 109/49 (69) 99 97.0 07/15/24 08:00 Nasal Cannula* 2 28 Total Intake and Output 07/14/24 07/14/24 07/15/24 15:00 23:00 07:00 Intake Total 120 ml 140 ml Output Total 1950 ml Balance 120 ml -1810 ml medications Current Medications Medications Dose Ordered Sig/Ky Route Start Time Stop Time Status Last Admin Dose Admin Acetaminophen 650 mg Q6HP PRN PO 07/13/24 03:15 Nitroglycerin 0.4 mg Q5MINP PRN SL 07/13/24 03:15 Morphine Sulfate 2 mg Q30M PRN IV 07/13/24 03:15 07/13/24 20:06 2 MG Enoxaparin Sodium 40 mg DAILY SC 07/14/24 10:00 07/15/24 09:52 40 MG Ceftriaxone Sodium 50 ml @ 100 mls/hr DAILY@09 IV 07/14/24 09:00 07/15/24 09:52 100 MLS/HR Metronidazole 100 ml @ 100 mls/hr Q8HR IV 07/13/24 14:00 07/15/24 15:58 100 MLS/HR Hydralazine HCl 10 mg Q6HP PRN IV 07/13/24 03:30 07/13/24 20:08 10 MG Ondansetron HCl 4 mg Q6HPRN PRN IV 07/13/24 18:15 07/13/24 20:55 4 MG Furosemide 40 mg BIDD IV 07/14/24 15:15 07/15/24 05:48 40 MG Aspirin 81 mg DAILY PO 07/15/24 10:00 07/15/24 09:53 81 MG Atenolol 25 mg BID PO 07/14/24 22:00 07/14/24 22:10 25 MG Atorvastatin Calcium 40 mg HS PO 07/14/24 22:00 07/14/24 22:11 40 MG Famotidine 40 mg DAILY PO 07/15/24 10:00 07/15/24 09:52 40 MG Examination General Appearance: Alert, Oriented X3, Cooperative, No acute distress HEENT: Atraumatic, PERRLA, EOMI, Mucous membrane moist/pink Respiratory: Clear to auscultation, Normal air movement remains in 2L of oxygen Cardiovascular: Regular rate, Normal S1, Normal S2, No murmurs, no chest wall tenderness Abdominal: NO distention, no tenderness, bowel sounds present, no scars noted Extremities: No clubbing, No cyanosis, No edema, Normal pulses, No tenderness/swelling, No pitting edema Skin: No rashes, No breakdown, No significant lesion Neuro: Normal gait, Normal speech, Strength at 5/5 X4 ext, Normal tone, Sensation intact, Cranial nerves 3-12 NL, Reflexes 2+ Psych/Mental Status: Mental status NL, Mood NL laboratory and microbiology Laboratory Tests 07/15/24 05:24 07/14/24 06:11 Test 07/15/24 05:24 Range/Units Serum Glucose 102 74-106 mg/dL Problem List/Assessment/Plan Problem List/Assessment/Plan Assessment and plan Acute Gastroenteritis likely infectious --> Zofran --> ceftriaxone and metronidazole Hypertensive urgency --> atenolol --> Echo report pending Acute Lower back pain --> Tylenol Asymptomatic pyuria --> Ceftriaxone Left renal not obstructing Renal --> Hydration Diverticulosis coli --> Monitor for inflammation Acute Transaminitis --> Check blood etoh 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 --> echocardiogram showing ejection fraction of 55-70% --> continue Lasix 40 mg b.i.d. pulmonary nodule 8mm Mediastinal lymphadenopathy on CT --> Follow with pulmology outpatient RV enlargement on Echo Coronary artery calcification disease. Goal of care discussed for more than 16 minute: Full code Case and plan discussed with Dr. Pride Plan discussed with: Patient My Orders My Orders Orders - YARITZA ZHENG Procedure Category Date Status Time Aspirin Tablet PHA 07/15/24 In Process 10:00 Atenolol Tablet PHA 07/14/24 In Process (Tenormin Tablet) 22:00 Atorvastatin (Lipitor) PHA 07/14/24 In Process 22:00 Famotidine Tablet PHA 07/15/24 In Process (Pepcid Tablet) 10:00 Full Liq Diet DIET 07/15/24 Transmitted Breakfast Dietary Evaluation Review Comments: 1. Advance diet as medically feasible 2. Continue current POC Expected Outcomes/Goals: to meet at least 75% estimated needs fu 3-5 days Date of Service: July 15, 2024 Billing Provider: SREEDHAR JONES MD Common Visit Codes: [id number] INP/OBS CARE(HIGH) YARITZA ZHENG July 15, 2024 17:13 SREEDHAR JONES MD July 17, 2024 01:24
[2024-07-16] VITALS (8 sets, daily range): BP systolic 110–143; BP diastolic 49–67; PULSE 52–66; RESP 15–18; TEMP 97.1–98.2; O2SAT 96–100
--- NOTE | 2024-07-16 14:21 | DVHPN2 ---
Subjective History of Present Illness Patient is 89 years old female with a past medical history of hypertension came to the hospital due to intractable nausea and vomiting. As per patient she has been having nausea and vomiting for last 2 days, couple of times a day, watery, no blood. Patient also endorsed diarrhea for last 3 days, 2 to 3 times a day, no blood. Also endorsed left lower back pain for last couple of days, crampy, intermittent in nature. On further inquiry patient reported she has been tired and fatigued. Patient denied fever, dysuria, acute joint pain or swelling, dysarthria or change in vision. chest pain or shortness of breath. Lab workup revealed 4 AST 102, ALT 45. CT abdomen reveale-. Nonobstructive left nephrolithiasis.Diverticulosis coli. Past Medical History: HTN Past Surgical History: Appendectomy, cholecystectomy, hysterectomy Past Social History: Lives alone, occasional alcoholic, denies smoking or drug abuse Home medication -atenolol Reviewed: H&P Changes from previous H/P or p: No Changes General: Per HPI Objective Vitals Vital Signs Date Time Temp Pulse Resp B/P (MAP) Pulse Ox O2 Delivery O2 Flow Rate FiO2 07/16/24 13:00 97.6 64 17 125/60 (81) 97 97.6 07/16/24 08:00 Nasal Cannula* 2 28 Intake/Output Intake and Output 07/16/24 06:59 Intake Total 1220 ml Output Total 1800 ml Balance -580 ml Intake Oral 1220 ml Output Urine Total 1800 ml Exam General Appearance: Alert, Oriented X3, Cooperative, No acute distress HEENT: Atraumatic, PERRLA, EOMI, Mucous membrane moist/pink Respiratory: Clear to auscultation, Normal air movement remains in 2L of oxygen Cardiovascular: Regular rate, Normal S1, Normal S2, No murmurs, no chest wall tenderness Abdominal: NO distention, no tenderness, bowel sounds present, no scars noted Extremities: No clubbing, No cyanosis, No edema, Normal pulses, No tenderness/swelling, No pitting edema Skin: No rashes, No breakdown, No significant lesion Neuro: Normal gait, Normal speech, Strength at 5/5 X4 ext, Normal tone, Sensation intact, Cranial nerves 3-12 NL, Reflexes 2+ Psych/Mental Status: Mental status NL, Mood NL Medications Current Medications Medications Dose Ordered Sig/Ky Route Start Time Stop Time Status Last Admin Dose Admin Acetaminophen 650 mg Q6HP PRN PO 07/13/24 03:15 Nitroglycerin 0.4 mg Q5MINP PRN SL 07/13/24 03:15 Morphine Sulfate 2 mg Q30M PRN IV 07/13/24 03:15 07/13/24 20:06 2 MG Enoxaparin Sodium 40 mg DAILY SC 07/14/24 10:00 07/16/24 11:57 40 MG Ceftriaxone Sodium 50 ml @ 100 mls/hr DAILY@09 IV 07/14/24 09:00 07/16/24 11:20 100 MLS/HR Metronidazole 100 ml @ 100 mls/hr Q8HR IV 07/13/24 14:00 07/16/24 05:16 100 MLS/HR Hydralazine HCl 10 mg Q6HP PRN IV 07/13/24 03:30 07/13/24 20:08 10 MG Ondansetron HCl 4 mg Q6HPRN PRN IV 07/13/24 18:15 07/16/24 11:57 4 MG Furosemide 40 mg BIDD IV 07/14/24 15:15 07/16/24 05:17 40 MG Aspirin 81 mg DAILY PO 07/15/24 10:00 07/15/24 09:53 81 MG Atenolol 25 mg BID PO 07/14/24 22:00 07/15/24 21:28 25 MG Atorvastatin Calcium 40 mg HS PO 07/14/24 22:00 07/15/24 21:27 40 MG Famotidine 40 mg DAILY PO 07/15/24 10:00 07/15/24 09:52 40 MG Enteral Nutritional Formula 240 ml BIDWM PO 07/16/24 10:30 Laboratory Results Laboratory Tests 07/14/24 06:11 07/15/24 05:24 Urinalysis Test 07/13/24 12:34 Urine Color Yellow (Yellow) Urine Clarity Clear (Clear) Urine pH 5.0 (5.0-9.0) Urine Specific [place] 1.021 (1.001-1.035) Urine Protein Negative (Negative) Urine Ketones Negative (Negative) Urine Blood Negative /uL (Negative) Urine Nitrite Negative (Negative) Urine Bilirubin Negative (Negative) Urine Urobilinogen Normal mg/dL (Negative) Urine Leukocyte Esterase 1+ /uL (Negative) Urine RBC 4 /hpf (0 - 4) Urine Microscopic WBC 9 /HPF (0-5) H Urine Squamous Epithelial Cells Few /hpf (<5) Urine Bacteria Few /hpf (None Seen) H Urine Glucose Normal mg/dL (Normal) Labs and/or images reviewed: Labs reviewed by me, Image(s) reviewed by me Assessment/Plan Assessment/Plan 07/16--patient initially had visit for gastroenteritis. On patient had acute worsening of dyspnea on exertion shortness for breath. Workup showed pulmonary hypertension with significant fluid overload with BNP elevation. Patient has no pedal edema and has rales in lungs bilaterally with diminished lower lobe breath sounds. Patient has been improving with diuresis. We will continue diuresis and trial nebulizer treatments today. Acute Gastroenteritis likely infectious --> Zofran --> ceftriaxone and metronidazole Hypertensive urgency --> atenolol --> Echo report pending Acute Lower back pain --> Tylenol Asymptomatic pyuria --> Ceftriaxone Left renal not obstructing Renal --> Hydration Diverticulosis coli --> Monitor for inflammation Acute Transaminitis --> Check blood etoh 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 --> echocardiogram showing ejection fraction of 55-70% --> continue Lasix 40 mg b.i.d. pulmonary nodule 8mm Mediastinal lymphadenopathy on CT --> Follow with pulmology outpatient RV enlargement on Echo Coronary artery calcification disease. Goal of care discussed for more than 16 minute: Full code Plan discussed with: Patient My Orders Orders - SREEDHAR JONES MD Procedure Category Date Status Time Nutritional PHA 07/16/24 In Process Supplements (Ensure 10:30 Date of Service: July 17, 2024 Billing Provider: SREEDHAR JONES MD Common Visit Codes: [id number] INP/OBS CARE(HIGH) SREEDHAR JONES MD July 16, 2024 14:21
[2024-07-16] MEDS: Ensure HIGH Protein Chocolate 8oz Bottle PO SCH (15:21)
[2024-07-17] VITALS (12 sets, daily range): BP systolic 109–136; BP diastolic 38–69; PULSE 60–71; RESP 15–18; TEMP 97.6–98.5; O2SAT 88–98
[2024-07-17 10:07] LABS: Basophils # (auto) 0 10 ^3/uL (0-0.2); Basophils % (auto) 0.4 % (0.0-2.0); Eosinophils # (auto) 0 10 ^3/uL (0-0.8); Eosinophils % (auto) 0.2 % (0.0-7.0); Hematocrit 39.6 % (36.0-46.0); Hemoglobin 13.1 g/dL (12.2-16.2); Lymphocytes # (auto) 0.8 10 ^3/uL (0.4-5.4); Lymphocytes % (auto) 10.5 % (10.0-50.0); Mean Corpuscular Hemoglobin 29.3 pg (28.0-32.0); Mean Corpuscular Hgb Conc. 33.2 g/dL (32.0-36.0); Mean Corpuscular Volume 88.4 fL (80.0-100.0); Monocytes # (auto) 0.5 10 ^3/uL (0-1.3); Monocytes % (auto) 5.8 % (0.0-12.0); Neutrophils # (auto) 6.5 10 ^3/uL (1.6-8.6); Neutrophils % (auto) 83.1 % (37.0-80.0); Platelet Count (auto) 154 10^3/uL (140-450); Red Blood Cells 4.48 10^6/uL (4.0-5.20); Red Cell Distribution Width 14.4 % (11.8-14.3); White Blood Cell 7.8 10^3/uL (4.4-10.8)
[2024-07-17 10:15] LABS: Sodium 140 mmol/L (136-145)
[2024-07-17 10:16] LABS: Anion Gap 7 (5-15); Calcium 9.5 mg/dL (8.7-10.4)
[2024-07-17] MEDS: POLYETHYLENE GLYCOL 17 GM PWDR PO ONE (10:20)
[2024-07-17 10:21] LABS: BUN/Creatinine Ratio 16.2 (10.0-20.0); Blood Urea Nitrogen 12 mg/dL (9-23); Carbon Dioxide 37 mmol/L (20-31); Chloride 96 mmol/L (98-107); Glucose 168 mg/dL (74-106); Potassium 3.3 mmol/L (3.5-5.1)
--- NOTE | 2024-07-17 13:48 | DVHPNRES ---
Progress Note Date Seen: July 17, 2024 Resident Creating Document: YARITZA ZHENG RESIDENT Has the PT tested + for MRSA If YES, has PT been informed?: No Medical Necessity Reason Pt with a Central, PICC or Fol: No Medical Necessity Reason istory of Present Illness Patient is 89 years old female with a past medical history of hypertension came to the hospital due to intractable nausea and vomiting. As per patient she has been having nausea and vomiting for last 2 days, couple of times a day, watery, no blood. Patient also endorsed diarrhea for last 3 days, 2 to 3 times a day, no blood. Also endorsed left lower back pain for last couple of days, crampy, intermittent in nature. On further inquiry patient reported she has been tired and fatigued. Patient denied fever, dysuria, acute joint pain or swelling, dysarthria or change in vision. chest pain or shortness of breath. Lab workup revealed 4 AST 102, ALT 45. CT abdomen reveale-. Nonobstructive left nephrolithiasis.Diverticulosis coli. Past Medical History: HTN Past Surgical History: Appendectomy, cholecystectomy, hysterectomy Past Social History: Lives alone, occasional alcoholic, denies smoking or drug abuse Home medication -atenolol PN: 07/13/2024 Patient is an 89 years old female with a past medical history of hypertension came to the hospital due to intractable nausea and vomiting and back pain. According to the patient, for the past 2-3 days, she has bee having. At least 2-3 times day. it was nonbilious and nonbloody. Then she she starting feeling dizzy. that prompted her to come to the ED. Also, patient mention having new onset lower back pain. She denies any numbness or tingling sensation in her lower extremities. She had no fever no dysuria quit acute joint pains. In the ED, her initial blood pressure was 187/77, heart rate 68, RR: 12-19. Work revealed mildly elevated liver enzymes AST about 2/3 grand on ALT. Patient said she does not drink or smoke. CT abdomen revealed1. No acute abdominal or pelvic findings Nonobstructive left nephrolithiasis and Diverticulosis coli. PN 07/14/2024 Patient is seen and examined this morning at the bedtime. He had difficulties breathing speaking in short sentences this is new compared to yesterday. BNP was elevated and has elevated D-dimer. CTa negative for PE, but pulmonary nodule measuring 8mm.. echo showed RV enlargement. Left atrial enlargement. Mild mitral annular calcification. Valves appear to be structurally normal. Mild MR. Moderate TR. Pulmonary hypertension. RVSP of 80 mmHg. Patient is started on Lasix 40 mg b.i.d. PN 07/15/2024 Patient is seen and examined at the bedside. She is feeling a lot better compared to yesterday. her breathing is a little better than yesterday. However, she remains on 2 L of oxygen. At night patient made about almost 2 L of urine. She made 1950ml of urine recorded at of 6:50am. She has no complaint. We will continue to keep patient on same regimen with IV Lasix to clear her fluid overload. Plan is for her to follow with cardiology and pulmonology outpatient. CTA revealed Mediastinal lymphadenopathy, Small bilateral pleural effusions,Coronary artery calcification disease. Pulmonary nodules up to 8 mm. PN: 07/17/2024 Patient seen and examined at the bed with her daughter present. She is doing well. She vomited once yesterday and was given zofran. Other fabian,she is fine. She is currently on 1L oxygen and has been on oxygen for 24 hours. Will discontinue that today and monitor her breathing. Also, will give her a nebulized breathing treatment today and q6hrs. Her blood pressure is good. Will change lasix from IV to PO..Plan will be to keep her one more might. IF her breathing deteriorates, please get ABG, CXR and BiPAP. Subjective Review of Systems Constitutional: Denies fever no chills no feeling of malaise HEENT: Denies headache, ear pain, ear discharges, conjunctivitis, nasal discharge throat pain Cardiovascular: Denies chest pain, palpitation, orthopnea, PND, or pedal edema Respiratory: Denies shortness of breath, cough cough, sputum production, hemoptysis, GI: Denies abdominal pain, nausea, vomiting, diarrhea, hematemesis, hematochezia, : Denies frequency, urgency, hematuria, Endocrine: Denies unintentional weight gain or weight loss, feeling of hot flashes, Dung: Denies easy bruising, bleeding disorders, epistaxis Musculoskeletal: Denies joint pains, muscle aches Psych: No evidence of depression, saturnino, suicidal ideation Objective vital signs Vital Sign Date Time Temp Pulse Resp B/P (MAP) Pulse Ox O2 Delivery O2 Flow Rate FiO2 07/17/24 10:25 69 128/60 07/17/24 09:00 97.9 16 96 97.9 07/17/24 08:10 Nasal Cannula* 2 28 Total Intake and Output 07/16/24 07/16/24 07/17/24 15:00 23:00 07:00 Intake Total 250 ml 600 ml Output Total 1000 ml 950 ml Balance -750 ml -350 ml medications Current Medications Medications Dose Ordered Sig/Ky Route Start Time Stop Time Status Last Admin Dose Admin Acetaminophen 650 mg Q6HP PRN PO 07/13/24 03:15 Nitroglycerin 0.4 mg Q5MINP PRN SL 07/13/24 03:15 Morphine Sulfate 2 mg Q30M PRN IV 07/13/24 03:15 07/13/24 20:06 2 MG Enoxaparin Sodium 40 mg DAILY SC 07/14/24 10:00 07/17/24 10:22 40 MG Ceftriaxone Sodium 50 ml @ 100 mls/hr DAILY@09 IV 07/14/24 09:00 07/17/24 10:25 100 MLS/HR Metronidazole 100 ml @ 100 mls/hr Q8HR IV 07/13/24 14:00 07/17/24 05:27 100 MLS/HR Hydralazine HCl 10 mg Q6HP PRN IV 07/13/24 03:30 07/13/24 20:08 10 MG Ondansetron HCl 4 mg Q6HPRN PRN IV 07/13/24 18:15 07/17/24 05:35 4 MG Furosemide 40 mg BIDD IV 07/14/24 15:15 07/17/24 05:27 40 MG Aspirin 81 mg DAILY PO 07/15/24 10:00 07/17/24 10:21 81 MG Atenolol 25 mg BID PO 07/14/24 22:00 07/17/24 10:25 25 MG Atorvastatin Calcium 40 mg HS PO 07/14/24 22:00 07/16/24 23:05 40 MG Famotidine 40 mg DAILY PO 07/15/24 10:00 07/17/24 10:22 40 MG Enteral Nutritional Formula 240 ml BIDWM PO 07/16/24 10:30 07/16/24 18:12 240 ML Examination General Appearance: Alert, Oriented X3, Cooperative, No acute distress HEENT: Atraumatic, PERRLA, EOMI, Mucous membrane moist/pink Respiratory: Clear to auscultation, Normal air movement Cardiovascular: Regular rate, Normal S1, Normal S2, No murmurs, no chest wall tenderness Abdominal: NO distention, no tenderness, bowel sounds present, no scars noted Extremities: No clubbing, No cyanosis, No edema, Normal pulses, No tenderness/swelling Skin: No rashes, No breakdown, No significant lesion Neuro: walked yesterday with PT. no complaints Psych/Mental Status: Mental status NL, Mood NL laboratory and microbiology Laboratory Tests 07/17/24 09:55 Test 07/17/24 09:55 Range/Units Serum Glucose 168 H 74-106 mg/dL Microbiology Date/Time Source Procedure Growth Status 07/16/24 03:32 Voided Urine Urine Culture - Preliminary Resulted Problem List/Assessment/Plan Problem List/Assessment/Plan Assessment and plan Acute Gastroenteritis likely infectious --> Zofran --> ceftriaxone and metronidazole Hypertensive urgency --> atenolol --> Hydralazine Acute Lower back pain --> Tylenol Asymptomatic pyuria --> Ceftriaxone Left renal not obstructing Renal --> Hydration Diverticulosis coli --> Monitor for inflammation Acute Transaminitis --> Check blood etoh 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 --> echocardiogram showing ejection fraction of 61% --> Changed to PO 40mg daily Acute hypoxic respiratory failure --> off 2L oxygen --> IF her breathing deteriorates, please get ABG, CXR and BiPAP ( 07/17/2024) pulmonary nodule 8mm Mediastinal lymphadenopathy on CT --> Follow with pulmology outpatient RV enlargement on Echo Coronary artery calcification disease. Goal of care discussed for more than 16 minute: Full code Case and plan discussed with Dr. Pride Plan discussed with: Patient, Daughter My Orders My Orders Orders - YARITZA ZHENG RESIDENT Procedure Category Date Status Time Incentive Spirometry ORDERS 07/17/24 Transmitted 09:30 Furosemide Tablet PHA 07/18/24 Logged (Lasix Tablet) 10:00 Basic Metabolic Panel LAB 07/18/24 Verified 04:00 Dietary Evaluation Review Comments: 1. Advance diet as medically feasible 2. Continue current POC Expected Outcomes/Goals: to meet at least 75% estimated needs fu 3-5 days YARITZA ZHENG RESIDENT July 17, 2024 13:48
[2024-07-17] MEDS: ALBUTEROL SULF 2.5 MG/0.5ML(0.5%) NEB SOLN NEB SCH (20:12)
[2024-07-17] MEDS: IPRATROPIUM BROM 0.5 MG/2.5ML INH SOL NEB SCH (20:13)
[2024-07-18 01:00] VITALS: BP 112/54; PULSE 76; RESP 18; TEMP 98.7; O2SAT 94
[2024-07-18 05:00] VITALS: BP 117/45; PULSE 67; RESP 18; TEMP 97.9; O2SAT 95
[2024-07-18 07:09] LABS: Chloride 98 mmol/L (98-107); Sodium 139 mmol/L (136-145)
[2024-07-18 07:10] LABS: Anion Gap 6 (5-15)
[2024-07-18 07:11] LABS: Calcium 9.5 mg/dL (8.7-10.4)
[2024-07-18 07:16] LABS: BUN/Creatinine Ratio 17.9 (10.0-20.0); Blood Urea Nitrogen 12 mg/dL (9-23)
[2024-07-18 07:18] LABS: Carbon Dioxide 35 mmol/L (20-31); Glucose 129 mg/dL (74-106); Potassium 3.2 mmol/L (3.5-5.1)
[2024-07-18 08:00] VITALS: PULSE 65; RESP 16; O2SAT 96
[2024-07-18 09:00] VITALS: BP 131/53; PULSE 64; RESP 16; TEMP 97.9; O2SAT 89
[2024-07-18 10:00] VITALS: O2SAT 98
[2024-07-18] MEDS: POTASSIUM EFFERVESENT TAB 25 MEQ PO ONE (10:18)
[2024-07-18] MEDS: FUROSEMIDE 20 MG TAB PO SCH (10:19)
[2024-07-18] MEDS ORDERED: FURO20TA4 GT (11:15)
[2024-07-18] MEDS ORDERED: ACET-1882 PO (11:15)
--- NOTE | 2024-07-18 11:54 | DVHDSRES ---
Discharge Summary Date of Admission Resident Creating Document: YARITZA ZHENG RESIDENT July 13, 2024 at 03:06 Date of Discharge: July 18, 2024 Admitting Diagnosis Nausea and vomiting Labs/Diagnostic Data: PATIENT: ANNEMARIE BRAR ACCT: [id number] UNIT: [id number] : 1935 LOC: [facility] ROOM / BED: [facility] / A AGE / SEX: 89 / F ADM STATUS: ADM IN SERVICE 1619 ORDERING PHYSICIAN: SREEDHAR JONES MD PROCEDURE(s): CTACH - CT ANGIO CHEST CONTRAST REASON: R/O PE ORDER NUMBER(s): [id number], ACCESSION NUMBER(s): [id number] Indication: R/O PE Technique: CT axial images of the chest are obtained with intravenous contrast per CT angiogram protocol. Coronal and sagittal reformats were obtained. Radiation Dose Information: CTDI volume is 8.88 mGy. Dose-length product is 469.49 mGy*cm Comparison: None FINDINGS: No filling defect within the main left and right pulmonary arteries. Segmental and subsegmental branches are suboptimally opacified/characterize. Trachea patent. No pneumothorax. Bilateral atelectasis. Left lower lobe nodule measuring 8 mm. 7 mm right lower lobe nodule. Small bilateral pleural effusions. Heart normal in size. Coronary artery calcification disease. Left paratracheal lymph node measuring 12 mm. Pretracheal lymph node measuring 9 mm. No supraclavicular or axillary lymphadenopathy. Cholecystectomy. Dilated CBD and intrahepatic ducts up to 11 mm. Moderate thoracic degenerative disc disease. IMPRESSION: 1. No evidence for large pulmonary embolism. 2. Mediastinal lymphadenopathy. 3. Small bilateral pleural effusions. 4. Coronary artery calcification disease. 5. Pulmonary nodules up to 8 mm.1. Recommend follow-up per Fleischner society criteria ATED BY: VIRIDIANA FERNANDES MD DICTATED DATE/TIME: 07/14/241817 PATIENT: ANNEMARIE BRAR ACCT: [id number] UNIT: [id number] : 1935 LOC: [facility] ROOM / BED: [facility] / A AGE / SEX: 89 / F ADM STATUS: ADM IN SERVICE 1131 ORDERING PHYSICIAN: YARITZA ZHENG PROCEDURE(s): CXR1 - CHEST XRAY 1 VIEW REASON: shortness of breath ORDER NUMBER(s): [id number], ACCESSION NUMBER(s): [id number] CHEST RADIOGRAPH Indication: shortness of breath Technique: Single frontal view of the chest was obtained Comparison: None FINDINGS: Lines and Tubes: None Lungs: No focal consolidation. Pleura: No effusion. No pneumothorax. Cardiomediastinal contours: Unremarkable Bones: No acute osseous abnormality. IMPRESSION: 1. No acute cardiopulmonary disease. ATED BY: BENJAMIN LOERA MD DICTATED DATE/TIME: 07/14/24 1216 PATIENT: ANNEMARIE BRAR ACCT: [id number] UNIT: [id number] : 1935 LOC: ER ROOM / BED: / AGE / SEX: 89 / F ADM STATUS: REG ER SERVICE 2232 ORDERING PHYSICIAN: BC THAPA PROCEDURE(s): ABPL - CT AB PEL WO CON-NO ORAL OR IV REASON: abd pain ORDER NUMBER(s): [id number], ACCESSION NUMBER(s): [id number] Exam: CT CT AB PEL WO CON-NO ORAL OR IV History: abd pain Comparison Study: None Technique: Multidetector spiral CT of the abdomen was performed from lung bases to pubic symphysis. Imaging was performed without IV contrast. Axial, coronal and sagittal multiplanar reformats were obtained from the axial data set by the technologist. Radiation Dose : 1. Abdomen/Pelvis: CTDIvol 10.63 mGy, DLP 523.67 mGy*cm. Findings: Evaluation of solid organs is limited due to lack of intravenous contrast use. Lung Bases: No acute or significant lung base finding. Normal heart size. No pleural or pericardial effusion. Liver: The liver is normal in size. No focal lesions. Gallbladder and Biliary Tree: Status post cholecystectomy. Spleen: Unremarkable Pancreas: Moderate diffuse fatty parenchymal replacement. The pancreas is otherwise grossly normal in appearance. Adrenal Glands: Unremarkable Kidneys: Kidneys are grossly normal without hydronephrosis. Nonobstructing left inferior pole 0.4 cm nephrolith. Bladder: Grossly unremarkable for degree of distention. Bowel: The stomach is grossly normal in appearance. Small bowel and colon are normal in caliber and distribution. Sigmoid colonic diverticula without CT evidence of acute diverticulitis. The appendix is not visualized; however, no secondary findings of acute appendicitis identified. Ascites: Absent Lymphadenopathy: No mesenteric, retroperitoneal or periportal lymphadenopathy. Abdominal Wall and Mesentery: Unremarkable. Vasculature: The visualized abdominal aorta is normal in size and caliber. Atherosclerotic vascular calcifications. Evaluation of abdominal and pelvic vessels is limited due to lack of intravenous contrast. Pelvic Organs: Unremarkable status post hysterectomy. Musculoskeletal: No aggressive focal bony lesions, acute fractures or dislocation. IMPRESSION: 1. No acute abdominal or pelvic findings. 2. Nonobstructive left nephrolithiasis. 3. Diverticulosis coli. Radiation optimization: All CT scans at this facility use at least one of these dose optimization techniques: automated exposure control mA and/or kV adjustment per patient size (includes targeted exams where dose is matched to clinical indication) or iterative reconstruction. ATED BY: BUCKY CHAMPION MD DICTATED DATE/TIME: 07/13/24 0157 Laboratory Results Test 07/18/24 06:16 07/17/24 09:55 07/14/24 19:26 07/14/24 14:11 Sodium Level 139 mmol/L (136-145) Potassium Level 3.2 mmol/L (3.5-5.1) Chloride Level 98 mmol/L (98-107) Carbon Dioxide Level 35 mmol/L (20-31) Anion Gap 6 (5-15) Blood Urea Nitrogen 12 mg/dL (9-23) Creatinine 0.67 mg/dL (0.550-1.02) Glomerular Filtration Rate Calc 83 mL/min (>90) BUN/Creatinine Ratio 17.9 (10.0-20.0) Serum Glucose 129 mg/dL (74-106) Calcium Level 9.5 mg/dL (8.7-10.4) White Blood Count 7.8 10^3/uL (4.4-10.8) Red Blood Count 4.48 10^6/uL (4.0-5.20) Hemoglobin 13.1 g/dL (12.2-16.2) Hematocrit 39.6 % (36.0-46.0) Mean Corpuscular Volume 88.4 fL (80.0-100.0) Mean Corpuscular Hemoglobin 29.3 pg (28.0-32.0) Mean Corpuscular Hemoglobin Concent 33.2 g/dL (32.0-36.0) Red Cell Distribution Width 14.4 % (11.8-14.3) Platelet Count 154 10^3/uL (140-450) Mean Platelet Volume 8.7 fL (6.9-10.8) Neutrophils (%) (Auto) 83.1 % (37.0-80.0) Lymphocytes (%) (Auto) 10.5 % (10.0-50.0) Monocytes (%) (Auto) 5.8 % (0.0-12.0) Eosinophils (%) (Auto) 0.2 % (0.0-7.0) Basophils (%) (Auto) 0.4 % (0.0-2.0) Neutrophils # (Auto) 6.5 10 ^3/uL (1.6-8.6) Lymphocytes # (Auto) 0.8 10 ^3/uL (0.4-5.4) Monocytes # (Auto) 0.5 10 ^3/uL (0-1.3) Eosinophils # (Auto) 0 10 ^3/uL (0-0.8) Basophils # (Auto) 0 10 ^3/uL (0-0.2) Nucleated Red Blood Cells 0.0 % Troponin I High Sensitivity 23 ng/L (</=34) D-Dimer, Quantitative 0.60 mg/L FEU (0.0-0.49) B-Type Natriuretic Peptide 508.59 pg/mL (0-100) Test 07/14/24 11:45 07/14/24 11:00 07/14/24 06:11 07/13/24 19:15 Influenza Type A Antigen Negative (Negative) Influenza Type B Antigen Negative (Negative) Prothrombin Time 10.8 sec (9.3-11.8) Prothrombin Time INR 1.02 (0.9-1.15) Activated Partial Thromboplast Time 24.8 SEC (24.5-34.5) Phosphorus Level 4.5 mg/dL (2.4-5.1) Magnesium Level 1.7 mg/dL (1.6-2.6) Total Bilirubin 0.5 mg/dL (0.2-1.0) Aspartate Amino Transferase (AST) 38 U/L (13-40) Alanine Aminotransferase (ALT) 46 U/L (7-40) Alkaline Phosphatase 96 U/L (46-116) Total Protein 5.9 g/dL (5.7-8.2) Albumin 3.6 g/dL (3.2-4.8) SARS-CoV-2 Antigen (Rapid) Negative (NEGATIVE) Test 07/13/24 12:34 07/13/24 05:28 07/12/24 22:39 Urine Color Yellow (Yellow) Urine Clarity Clear (Clear) Urine pH 5.0 (5.0-9.0) Urine Specific [place] 1.021 (1.001-1.035) Urine Protein Negative (Negative) Urine Ketones Negative (Negative) Urine Blood Negative /uL (Negative) Urine Nitrite Negative (Negative) Urine Bilirubin Negative (Negative) Urine Urobilinogen Normal mg/dL (Negative) Urine Leukocyte Esterase 1+ /uL (Negative) Urine RBC 4 /hpf (0 - 4) Urine Microscopic WBC 9 /HPF (0-5) Urine Squamous Epithelial Cells Few /hpf (<5) Urine Bacteria Few /hpf (None Seen) Urine Glucose Normal mg/dL (Normal) Thyroid Stimulating Hormone (TSH) 1.55 uIU/mL (0.55-4.78) Lipase 50 U/L (12-53) Other Laboratory Tests 07/18/24 06:16 07/17/24 09:55 Brief Hx & Hospital Course: History of Present Illness Patient is 89 years old female with a past medical history of hypertension came to the hospital due to intractable nausea and vomiting. As per patient she has been having nausea and vomiting for last 2 days, couple of times a day, watery, no blood. Patient also endorsed diarrhea for last 3 days, 2 to 3 times a day, no blood. Also endorsed left lower back pain for last couple of days, crampy, intermittent in nature. On further inquiry patient reported she has been tired and fatigued. Patient denied fever, dysuria, acute joint pain or swelling, dysarthria or change in vision. chest pain or shortness of breath. Lab workup revealed 4 AST 102, ALT 45. CT abdomen revealed Nonobstructive left nephrolithiasis.Diverticulosis coli. Past Medical History: HTN Past Surgical History: Appendectomy, cholecystectomy, hysterectomy Past Social History: Lives alone, occasional alcoholic, denies smoking or drug abuse Home medication -atenolol Brief Hospital course Patient is an 89 years old female with a past medical history of hypertension came to the hospital due to intractable nausea and vomiting and back pain. According to the patient, the past 2-3 days prior to coming to the ED, she has been having nausea and vominting. At least 2-3 times day. it was nonbilious and nonbloody. Then she she starting feeling dizzy. Also, patient mention having new onset lower back pain. She denies any numbness or tingling sensation in her lower extremities. She had no fever no dysuria quit acute joint pains. In the ED, her initial blood pressure was 187/77, heart rate 68, RR: 12-19. Lab work revealed elevated liver enzymes AST about 2/[address] abdomen revealed no acute abdominal or pelvic findings nonobstructive left nephrolithiasis and Diverticulosis coli. Started on IV antibiotics, and antihypertensive medication and monitored closely. With the following the patient was noted to be in shortness of breaths. She was having difficulties breathing [facility] for BNP showed elevated BNP with elevated D-dimer. A CT angiogram was negative for PE however it did showed a nodule about 8 mm, Mediastinal lymphadenopathy, small bilateral pleural effusions,Coronary artery calcification disease. An echo also showed right ventricular enlargement, left atrial enlargement, Mild mitral annular calcification.Valves appear to be structurally normal. Mild MR. Moderate TR. Pulmonary hypertension. RVSP of 80 mmHg. Patient is started on Lasix 40 mg b.i.d. Patient felt better, had good amount of urine in 24hours. Patient continues to feel better. Her oxygen demand decreased and was eventually taken off oxygen. Patient today is doing better. Her breathing is improved. She is off oxygen and has not had nausea or vomiting in 24 hours. Furosemide was also reduced to 40mg po daily. She tolerated it well. Patient overall is better and will discharge her back to the assisted living facility. Patient is to follow up with a cytogenetics laboratory manager for evaluation of the pulmonary nodule and also for the pulmonary hypertension, follow up with the special forces officer for the new diagnosis of acute diastolic heart failure and also with the PCP for continuous care. Patient is also advised to follow up at the discharge Clinic within 7 days to reassess her health. Review of Systems Constitutional: Denies fever no chills no feeling of malaise HEENT: Denies headache, ear pain, ear discharges, conjunctivitis, nasal discharge throat pain Cardiovascular: Denies chest pain, palpitation, orthopnea, PND, or pedal edema Respiratory: Denies shortness of breath, cough cough, sputum production, hemoptysis, GI: Denies abdominal pain, nausea, vomiting, diarrhea, hematemesis, hematochezia, : Denies frequency, urgency, hematuria, Endocrine: Denies unintentional weight gain or weight loss, feeling of hot flashes, Dung: Denies easy bruising, bleeding disorders, epistaxis Musculoskeletal: Denies joint pains, muscle aches Psych: No evidence of depression, saturnino, suicidal ideation Examination General Appearance: Alert, Oriented X3, Cooperative, No acute distress HEENT: Atraumatic, PERRLA, EOMI, Mucous membrane moist/pink Respiratory: Clear to auscultation, Normal air movement Cardiovascular: Regular rate, Normal S1, Normal S2, No murmurs, no chest wall tenderness Abdominal: NO distention, no tenderness, bowel sounds present, no scars noted Extremities: No clubbing, No cyanosis, No edema, Normal pulses, No tenderness/swelling Skin: No rashes, No breakdown, No significant lesion Neuro: Normal gait, Normal speech, Strength at 5/5 X4 ext, Normal tone, Sensation intact, Cranial nerves 3-12 NL, Reflexes 2+ Psych/Mental Status: Mental status NL, Mood NL Diagnoses Acute exacerbation Diastolic heart failure ( HFpEF) Acute hypoxic respiratory failure Acute Gastroenteritis likely infectious Hypertensive urgency Acute Lower back pain Asymptomatic pyuria Left renal Nonobstructive left nephrolithiasis. Diverticulosis coli Acute Transaminitis Pulmonary hypertension pulmonary nodule 8mm Mediastinal lymphadenopathy on CT RV enlargement on Echo Coronary artery calcification disease. Diverticulosis coli Discharge plans Follow up at the discharge Clinic in 7 days Follow up with the primary care for continuity of care Follow up with pulmonology for pulmonary hypertension and for the pulmonary nodule Follow up with the special forces officer for evaluation for further evaluation and management of new onset diastolic heart failure Continue furosemide 20 mg daily Continue atenolol at current dose Discharge plan discussed with Dr. Pride Condition at Discharge: Good Final Diagnosis/Problems List Acute Diastolic heart failure ( HFpEF) Acute hypoxic respiratory failure Acute Gastroenteritis likely infectious Hypertensive urgency Acute Lower back pain Asymptomatic pyuria Left renal Nonobstructive left nephrolithiasis. Diverticulosis coli Acute Transaminitis Pulmonary artery hypertension pulmonary nodule 8mm Mediastinal lymphadenopathy on CT RV enlargement on Echo Coronary artery calcification disease. Diverticulosis coli Discharge Disposition: Assisted Living Facility Discharge Instruct/Medications Diet: Cardiac 2g Na,low cholest Diet comment: Cardiac diet Activity: No Restrictions, As Tolerated Follow Up/Referral: 7 days at the discharge clinic Follow up with PCP Follow up with pulmonology Medications: Furosemide 20 mg daily atenolol Discharge Statement: "Patient was advised to return to the ER or call 911 if any headaches, dizziness, shortness of breath, chest pain, abdominal pain, bleeding, fevers, or worsening of medical condition. Patient was counseled about treatment plan, medications, possible side effects, patientverbalized understanding. All questions were answered to the best of my ability. This discharge took greater then 30 minutes in planning, reviewing documentation, counseling the patient, and discussing with other team members." ASSESSMENT ASSESSMENT Assessment Acute Diastolic heart failure ( HFpEF) Acute hypoxic respiratory failure Acute Gastroenteritis likely infectious Hypertensive urgency Acute Lower back pain Asymptomatic pyuria Left renal Nonobstructive left nephrolithiasis. Diverticulosis coli Acute Transaminitis Pulmonary artery hypertension pulmonary nodule 8mm Mediastinal lymphadenopathy on CT RV enlargement on Echo Coronary artery calcification disease. Diverticulosis coli YARITZA ZHENG RESIDENT July 18, 2024 11:54
[2024-07-18 12:51] VITALS: BP 143/56; PULSE 59; RESP 18; TEMP 97.6; O2SAT 94
--- NOTE | 2024-07-19 09:02 | ECG ---
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
--- NOTE | 2024-07-19 09:02 | ECG ---
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
== END 2024-07-18 16:36 | disposition home or self-care (01) | DRG 693 ==
LOC: EDUNIT# 22:08 → EDBD 22:08 → ER 22:08 → OVERFLOW 07-13 03:06 → WEST WING 07-13 21:46
PROVIDERS: ADMIT Student in an Organized Health Care Education/Training Program; ATTEND Student in an Organized Health Care Education/Training Program
DX: N20.0 Calculus of kidney (principal); I50.31 Acute diastolic (congestive) heart failure; J96.01 Acute respiratory failure with hypoxia; A09 Infectious gastroenteritis and colitis, unspecified; I16.0 Hypertensive urgency; K57.30 Diverticulosis of large intestine without perforation or abscess without bleeding; R74.01 Elevation of levels of liver transaminase levels; I27.21 Secondary pulmonary arterial hypertension; I25.10 Atherosclerotic heart disease of native coronary artery without angina pectoris; I11.0 Hypertensive heart disease with heart failure; R59.0 Localized enlarged lymph nodes; Z88.5 Allergy status to narcotic agent; Z90.49 Acquired absence of other specified parts of digestive tract; Z90.710 Acquired absence of both cervix and uterus; Z79.899 Other long term (current) drug therapy
CPT/HCPCS: 36415; 71045; 71275; 74176; 80048; 80053; 81001; 83690; 83735; 83880; 84100; 84443; 84484; 85025; 85379; 85610; 85730; 87086; 87426; 87804; 93005; 93306; 94640; 97110; 97116; 97163; 97530; G0378; J2405; J2470; J3490